=== PATIENT | female | born 1955 | race Caucasian/White ===

== ENCOUNTER 2021-10-20 14:29 | Observation (INO) | payer MEDICARE, OTHER, SELFPAY ==
[2021-10-20] VITALS (10 sets, daily range): BP systolic 122–143; BP diastolic 59–91; PULSE 65–89; RESP 17–25; TEMP 36.4–37.1; O2SAT 93–98; BMI 32.5; BMI 36.8
--- NOTE | 2021-10-20 14:47 | CT_ITS ---
STUDY: CT HEAD STROKE PROTOCOL W/O CONTRAST INJECTION REASON FOR EXAM: Female, 65 years old. Neuro deficit, acute, stroke suspected RADIATION DOSAGE (If Supplied By Facility): CTDIvol = ( 44.99 ) mGy, DLP = ( 779.24 ) mGycm TECHNIQUE: Transaxial CT imaging of the brain was performed without administration of intravenous contrast material. Individualized dose optimization techniques were used for this CT. COMPARISON: No relevant priors. FINDINGS: Normal soft tissue structures. There is hyperostosis frontalis internus. There is mild cerebral atrophy with widening of the extra-axial spaces and ventricular dilatation. Normal white matter tracts of the cerebral hemispheres. Normal basal ganglia and thalami. Normal brainstem. There is mild cerebellar atrophy. There is no intracranial hemorrhage. There are no findings of an acute ischemic infarction. Atherosclerotic plaque calcification of the cavernous portions of the internal carotid arteries bilaterally. Normal visualized paranasal sinuses. ASPECT score: 10 CT/STROKE Brain/Head without Cont IMPRESSION: Chronic involutional changes of the brain. N.B. : The above Results were Read Back by Adriel Clemons MD to Dilip Maravilla and understanding confirmed on 10/20/2021 15:00:39 (ET). Electronically Signed: Adriel Clemons MD at 15:01 EDT ,
--- NOTE | 2021-10-20 14:47 | EKG12_ITS ---
Test Reason : stroke Blood Pressure : / mmHG Vent. Rate : 065 BPM Atrial Rate : 065 BPM P-R Int : 152 ms QRS Dur : 086 ms QT Int : 410 ms P-R-T Axes : 049 -08 032 degrees QTc Int : 426 ms Normal sinus rhythm Normal ECG Confirmed by CORETTA POWELL, DANISH ([id number]), proposal editor JAVIER FELICIANO ([id number]) on 10/21/2021 2:12:39 PM Referred By: Renita Confirmed By:ALEXY HITCHCOCK MD
--- NOTE | 2021-10-20 14:48 | ED.VIS.STROK ---
HPI History of Present Illness Chief Complaint: Neuro S/Sx Informant: patient and EMS Onset/Context/Timing Onset: Today Narrative Narrative: Patient brought in by EMS for potential stroke symptoms. currently not present. Patient reports left driving following her and RV at 1230. pulled her over states she was not acting right. EMS was contacted. Reported garbled speech and weakness. History of multiple TIAs in the past she says a total of 3 first in 2015 had 2 in 2019. Chronic mild left droop and had dysarthria at that time and went through speech therapy. She does report noting more speech changes. She states was put on aspirin and Plavix after her TIA in 2019 however developed a GI bleed. Continued on Plavix. In January 2021 had a traumatic subdural hematoma transferred down to [facility] with no surgical intervention. Denies headache. History of prediabetes. History of CKD stage III with baseline GFR 40 per patient. She does not take any anticoagulants. She is a retired respiratory therapist. Prior similar symptoms: Yes PFSH PFS Medical History (Updated 10/20/21 @ 19:16 by Shana Cobos) Asthma Coronary artery disease Fibromyalgia GI bleed Hernia Irregular heart beat Kidney disease Kidney stones Sleep apnea TIA (transient ischemic attack) Home Medications amitriptyline 10 mg tablet 20 mg PO QHS neck 10/20/21 [History Last Taken 10/19/21] carvedilol 12.5 mg tablet 12.5 mg PO BID heart bp 10/20/21 [History Last Taken 10/20/21] clopidogrel 75 mg tablet 75 mg PO QHS blood thinner 10/20/21 [History Last Taken 10/19/21] fluticasone fur. 200 mcg-umeclid 62.5 mcg-vilant 25 mcg inhalat.powder (Trelegy Ellipta) inh inhalation BID sob 10/20/21 [History Last Taken 10/20/21] gabapentin 300 mg capsule 300 mg PO BID pain 10/20/21 [History Last Taken 10/20/21] losartan 50 mg tablet 50 mg PO DAILY bp 10/20/21 [History Last Taken 10/20/21] omeprazole 40 mg capsule,delayed release 40 mg PO BID stomach 10/20/21 [History Last Taken 10/20/21] Allergy/AdvReac Type Severity Reaction Status Date / Time No Known Allergies Allergy Verified 10/20/21 14:54 Family History Mother CAD (coronary artery disease) Father CAD (coronary artery disease) Surgical History (Updated 10/20/21 @ 19:16 by Shana Cobos) H/O: hysterectomy History of ankle surgery History of section Status post ORIF of fracture of ankle Social History (Updated 10/20/21 @ 17:[address] Karen Yusuf MD) household members: spouse Smoking Status: Never smoker substance use type: does not use ROS ROS ED Constitutional Constitutional ED: Denies chills, fever(s) or sweats Eyes Eyes: Denies change in vision ENT ENT ED: Denies dysphagia or sore throat Cardiovascular Cardiovascular: Denies chest pain, leg edema, palpitations or racing heartbeat Respiratory/Chest Respiratory/Chest: Denies cough, dyspnea or dyspnea on exertion Gastrointestinal Gastrointestinal: Denies abdominal pain, diarrhea, nausea or vomiting Genitourinary Genitourinary ED: Denies dysuria, hematuria or urinary frequency Musculoskeletal Musculoskeletal: Denies back pain, extremity pain or neck pain Integumentary Denies rash or wounds Neurologic Neurologic: Reports other Details: Dysarthria ; Denies headache(s), paresthesias or weakness EXAM Physical Exam Const Vital Signs: 10/20/21 14:32 10/20/21 14:50 10/20/21 14:50 Temperature 97.9 F Temperature Source Oral Pulse Rate 73 70 Respiratory Rate 25 H 19 H Blood Pressure 143/74 H 143/74 H Blood Pressure Mean 97 97 Pulse Ox 94 98 Oxygen Delivery Method Room Air Room Air Room Air 10/20/21 14:58 10/20/21 15:17 10/20/21 15:30 Temperature 97.9 F 98.7 F Temperature Source Oral Temporal Pulse Rate 70 65 68 Respiratory Rate 19 H 21 H 22 H Blood Pressure 143/74 H 132/59 H 139/82 H Blood Pressure Mean 97 83 101 Pulse Ox 98 98 93 Oxygen Delivery Method Room Air Room Air Room Air 10/20/21 15:30 Temperature Temperature Source Pulse Rate 68 Respiratory Rate 22 H Blood Pressure 139/82 H Blood Pressure Mean 101 Pulse Ox 93 Oxygen Delivery Method Room Air Positive well nourished and well developed General Appearance ED: well developed and NAD HEENT Reports moist mucous membranes normocephalic and atraumatic Eyes PERRL, EOMs intact bilaterally and conjunctivae normal General Eye ED: Yes normal appearance of both eyes Neck no lymphadenopathy and supple General: Negative for tenderness Chest Wall Chest: Negative for tenderness Resp normal respiratory effort and normal air movement Effort and Inspection: symmetric chest movement; Negative for respiratory distress Cardio regular rate, regular rhythm and no murmurs Peripheral Pulses: pulses 2+ throughout GI normal to inspection, nondistended, normoactive bowel sounds and non-tender Palpation: Negative for guarding or rebound tenderness present Back/Spine no CVA tenderness and no thoracic nor lumbar tenderness Extremity normal to inspection General Extremety ED: Negative for edema or tenderness General Extremity: Negative for edema Neuro oriented x3 and no sensory deficits noted Neuro Narrative: Slight left lip droop chronic per patient, dysarthria new. Sensorium / Orientation: awake and alert Skin no rashes or lesions noted and no wounds NIHSS NIHSS Initial: 1a Level of Consciousness: 0 1b LOC Questions (Score 2 if aphasic/stupor): 0 1c LOC Commands (Only score 1st attempt): 0 2 Best Gaze (If aphasic, use reflexive mvmts.): 0 3 Visual: 0 4 Facial Palsy: 1 5 Motor Arm Right (UN = amputation/fusion): 0 5 Motor Arm Left: 0 6 Motor Leg Right: 0 6 Motor Leg Left: 0 7 Limb ataxia (Only + if out of proportion): 0 8 Sensory (Aphasia/stupor=0 or 1, coma=2): 0 9 Best Language: 0 10 Dysarthria (mute, coma=2, intubated=UN): 1 11 Extinction and Inattention (only scored if +): 0 Total Score: 2 MDM MDM MDM Narrative Medical decision making narrative: Patient NIH of 2, however left lip droop is chronic. Dysarthria is new. Last clearly known time was 1230 when she left driving. Spouse is not currently present. Onset within 4 and half hours. Reported CKD stage III with GFR 40, there is no labs in the system. We will hold off on CTA at this time pending labs and discussion with neurology. 1508: Tele Neurology evaluated. NIH too low for tPA. Discussed her chronic kidney disease, discussed okay to wait for MRI/MRA studies. No CTA. Plan admission for work-up. She will make recommendations for anticoagulations with her known bleeding issues on dual antiplatelet therapy. I spoke with hospitalist Dr. Yusuf for admission to PCU. Lab Data Attestation: I reviewed the patient's lab results. Labs: Laboratory Results - last 24 hr 10/20/21 10/20/21 10/20/21 14:48 15:00 15:00 WBC 4.9 RBC 3.41 L Hgb 11.8 L Hct 35.1 L MCV 102.9 H MCH 34.6 H MCHC 33.6 RDW Std Deviation 49.2 H RDW Coeff of Rubén 13.2 Plt Count 295 MPV 9.2 Immature Gran % (Auto) 0.600 Neut % (Auto) 60.6 Lymph % (Auto) 26.1 Collingsworth % (Auto) 10.3 H Eos % (Auto) 1.6 Baso % (Auto) 0.8 Absolute Neuts (auto) 3.0 Absolute Lymphs (auto) 1.29 Nucleated RBC % 0 PT 12.9 INR 1.0 APTT 26.9 Sodium Potassium Chloride Carbon Dioxide Anion Gap BUN Creatinine Estim Creat Clear Calc Est GFR (MDRD) Af Amer Est GFR (MDRD) Non-Af BUN/Creatinine Ratio Glucose Hemoglobin A1c Calcium Troponin I High Sens TSH POC Glucose 92 10/20/21 10/20/21 10/20/21 15:00 15:00 15:00 WBC RBC Hgb Hct MCV MCH MCHC RDW Std Deviation RDW Coeff of Rubén Plt Count MPV Immature Gran % (Auto) Neut % (Auto) Lymph % (Auto) Collingsworth % (Auto) Eos % (Auto) Baso % (Auto) Absolute Neuts (auto) Absolute Lymphs (auto) Nucleated RBC % PT INR APTT Sodium 139 Potassium 3.8 Chloride 105 Carbon Dioxide 25.0 Anion Gap 9 BUN 10 Creatinine 1.13 H Estim Creat Clear Calc 45.23 Est GFR (MDRD) Af Amer 62 Est GFR (MDRD) Non-Af 51 L BUN/Creatinine Ratio 8.8 L Glucose 99 Hemoglobin A1c 6.1 H Calcium 8.7 Troponin I High Sens 5 TSH 2.76 POC Glucose Radiography Diagnostic Testing: Clinical Impression(s) from Imaging Studies Brain CT 10/20/21 14:47 IMPRESSION: Chronic involutional changes of the brain. N.B. : The above Results were Read Back by Adriel Clemons MD to Dilip Maravilla and understanding confirmed on 10/20/2021 15:00:39 (ET). Electronically Signed: Adriel Clemons MD at 15:01 EDT , ADDENDUM: 10/20/21 1508 IMPRESSION: Chronic involutional changes of the brain. N.B. : The above Results were Read Back by Adriel Clemons MD to Dilip Maravilla and understanding confirmed on 10/20/2021 15:00:39 (ET). Electronically Signed: Adriel Clemons MD at 15:01 EDT , Chest X-Ray 10/20/21 15:20 IMPRESSION: Mild cardiomegaly. The lungs are clear. Electronically Signed: Adriel Clemons MD at 15:34 EDT , EKG Initial EKG: Attestation: I personally reviewed and interpreted this EKG as follows: Comments: Sinus rate of 65, no ST changes T wave inversions anterior leads. Discharge Plan Disposition Disposition: Acute Care Hospital [facility] Discharge Date/Time: 10/20/21 16:01
--- NOTE | 2021-10-20 14:56 | CM.ED ---
SW Note SW responded to stroke alert with media supervisor. No family was present. SW remains available if needs arise. Michaela PANDA
[2021-10-20 15:06] LABS: Bedside Glucose 92 mg/dL (74-106)
[2021-10-20 15:12] LABS: Absolute Lymphocyte Count 1.29 X10^3/uL (0.83-4.51); Basophil# 0.04 X10^3/uL; Basophil% 0.8 % (0-1); Eosinophil# 0.08 X10^3/uL; Eosinophils% 1.6 % (0-5); Hematocrit 35.1 % (37-47); Hemoglobin 11.8 g/dL (12.0-15.0); Lymphocyte # 1.29 X10^3/ul (0.83-4.51); Lymphocyte % 26.1 % (19-41); Mean Corp Hgb Conc 33.6 g/dL (32-36); Mean Corpuscular Hgb 34.6 pg (27.0-32.0); Mean Corpuscular Volume 102.9 fL (81-99); Mean Platelet Vol. 9.2 fl (6.2-12.0); Monocyte# 0.51 X10^3/uL; Monocyte% 10.3 % (0-10); NRBC Flagged by Analyzer 0 % (0-5); Neutrophil # 2.99 X10^3/uL (2.7-7.7); Neutrophil % 60.6 % (47-70); Platelet Count 295 K/mm3 (150-450); RBC Distribution Width CV 13.2 % (11.6-14.6); RBC Distribution Width SD 49.2 fl (35.1-43.9); Red Blood Count 3.41 M/mm3 (4.2-5.4); White Blood Count 4.9 K/mm3 (4.4-11.0)
--- NOTE | 2021-10-20 15:20 | RAD_ITS ---
STUDY: X-RAY CHEST REASON FOR EXAM: Female, 65 years old. Neuro deficit, acute, stroke suspected TECHNIQUE: Single AP portable view of the chest. COMPARISON: None. FINDINGS: EKG electrodes are seen. Mild elevation of the right hemidiaphragm. There is no demonstrated pleural abnormality. There is mild cardiac enlargement. Normal mediastinum and nikolai. Normal visualized pulmonary arteries. There is atherosclerotic tortuosity of the aortic arch and descending thoracic aorta. Normal visualized thoracic spine. Normal visualized ribs, clavicles, and shoulders. There is no demonstrated abnormality of the visualized soft tissue structures of the upper abdomen. RAD/Chest 1 View IMPRESSION: Mild cardiomegaly. The lungs are clear. Electronically Signed: Adriel Clemons MD at 15:34 EDT ,
[2021-10-20 15:23] LABS: Partial Thromboplast Time 26.9 Seconds (24.1-36.2); Prothrombin Time (Protime)PT. 12.9 SECONDS (11.7-14.9)
[2021-10-20 15:28] LABS: Anion Gap 9 (5-15); BUN 10 mg/dL (7-18); BUN/Creat Ratio 8.8 RATIO (10-20); Calcium,Total 8.7 mg/dL (8.5-10.1); Chloride 105 mmol/L (98-107); Creatinine, Serum 1.13 mg/dL (0.55-1.02); EST Glomerular Filtration Rate 51 mL/min (>60); Est Glom Filt Rate - Afr Amer 62 mL/min (>60); Estimated Creatinine Clearance 45.23 ml/min; Glucose 99 mg/dL (74-106); Potassium 3.8 mmol/L (3.5-5.1); Sodium Level 139 mmol/L (136-145); Troponin-I HS 5 pg/mL (3.0-54.0)
--- NOTE | 2021-10-20 15:35 | CHAPLAIN ---
Type of Pastoral Visit ___ Initial Visit ___ Follow-up Visit ___ On-call Visit ___ General Patient Visit ___ Spiritual Assessment ___ Family Conference ___ Bereavement _x__ Rapid Response ___ Code Blue ___ Other (describe below) Pastoral Care Referral From ___ Patient ___ Family ___ Nurse ___ Physician ___ Arts Administrator Or Manager ___ Concrete Laborer _x__ Other (describe below) Sacrament/Intervention ___ Active listening ___ Anointing ___ Orthodoxy ___ Bereavement ___ Communion ___ Era exploration ___ ___ Life review ___ Prayer ___ Reconciliation ___ Sacrament of Sick _x__ Supportive presence ___ Wedding ___ Other (describe below) Pastoral Comments came to stroke alert in ED; pt was taken in CT for scan; was supposed to be coming in and therefore waited for him; however, after some time it was learned from a phone call that spouse had driven on to their camping destination and would need to back track to hospital later today; offer of support and presence to the patient; stroke alert was then rescinded but pt will be admitted
--- NOTE | 2021-10-20 16:10 | ECHOD_ITS ---
Reason For Study: TIA/CVA Procedure This was a 2D Doppler, Color Flow transthoracic echocardiogram. Technically difficult apical images. Breathing techniques were used. Exam performed portable in patient room. Left Ventricle Normal LV size. The estimated ejection fraction is 70 %. No evidence for diastolic dysfunction. No regional wall motion abnormalities noted. Right Ventricle Normal RV size. Normal systolic function. Atria Normal left atrium. Normal right atrium. No doppler evidence for ASD. Bubble contrast study negative for right to left interatrial shunt. Mitral Valve There is no mitral valve stenosis. Trivial mitral valve insufficiency. Tricuspid Valve There is no tricuspid stenosis. Unable to estimate RV systolic pressure due to inadequate jet, pulmonary artery pressure probably normal. Aortic Valve Trisinus/trileaflet aortic valve. There is no aortic stenosis. No aortic valve insufficiency. Pulmonic Valve There is no pulmonic valvular stenosis. No pulmonic valve insufficiency. Great Vessels Normal aortic root. Pericardium/Pleural No pericardial effusion. Medication Performed a rapid injection of agitated mix of 9 cc saline and 1cc air to assess for atrial septal defect. MMode/2D Measurements & Calculations LVIDd: 4.7 cm IVSd: 0.84 cm Ao root diam: 3.0 cm LVIDs: 2.9 cm LVPWd: 0.90 cm LA dimension: 3.2 cm FS: 38.3 % LAV(MOD-bp): 24.4 ml LA A4 area: 11.4 cm2 LAV(MOD-bp) Indexed: 13.1 ml/m2 LAV(MOD-sp2): 25.3 ml LAV(MOD-sp4): 23.7 ml Time Measurements MV dec time: 0.27 sec Doppler Measurements & Calculations MV E max arun: 50.3 cm/sec Lat Peak E' Arun: 9.2 cm/sec Med Peak E' Arun: 8.2 cm/sec MV A max arun: 87.5 cm/sec E/E' lat: 5.5 E/E' med: 6.1 MV E/A: 0.57 MV V2 max: 87.0 cm/sec MV P1/2t max arun: 55.3 cm/sec Ao V2 max: 100.0 cm/sec MV max P.0 mmHg MV P1/2t: 67.2 msec Ao max P.0 mmHg MV V2 mean: 43.9 cm/sec MV dec slope: 241.3 cm/sec2 MV mean P.95 mmHg MV V2 VTI: 14.6 cm MVA(P1/2t): 3.3 cm2 LV V1 max: 75.0 cm/sec PA V2 max: 110.5 cm/sec LV V1 max P.2 mmHg ECHO/Echo Complete Interpretation Summary The estimated ejection fraction is 70 %. No evidence for diastolic dysfunction. Trivial mitral valve insufficiency. Ordering Physician: Karen Yusuf Performed By: Gabo Doyle RCS
--- NOTE | 2021-10-20 16:10 | MRI_ITS ---
EXAM: MR HEAD WITHOUT INTRAVENOUS CONTRAST CLINICAL INDICATION: Neuro deficits, EPISODE OF AMNESIA TECHNIQUE: Multiplanar and multisequence MR images of the brain were obtained without intravenous contrast. Magnetic field strength 1.5 T. This report was created using [employer] report generation technology. COMPARISON: CT brain 10/20/2021. FINDINGS: BRAIN AND EXTRA-AXIAL SPACES: Unremarkable. No intra- or extra-axial hemorrhage. No evidence of acute infarct. No intracranial mass or mass effect. There is preservation of the stallworth/white matter interface. Posterior fossa structures are unremarkable. Ventricles are appropriate for age. No hydrocephalus. Basal cisterns are patent. SELLA: Incidental empty sella. AUDITORY SYSTEM: Unremarkable. The internal auditory canals are patent. BONES/JOINTS: Unremarkable. No discrete lytic or blastic abnormalities. SINUSES: Unremarkable as visualized. Clear. MASTOID AIR CELLS: Unremarkable as visualized. Clear. ORBITS: Unremarkable as visualized. Both globes, extraocular muscles, optic nerves and retrobulbar fat appear unremarkable. VASCULATURE: Unremarkable as visualized. Normal flow voids in the major intracranial circulation. MRI/Brain without Contrast IMPRESSION: No acute findings in the head/brain. Electronically Signed: Jonathan Goncalves MD at 4:55 EDT ,
--- NOTE | 2021-10-20 16:10 | MRI_ITS ---
EXAM: MR ANGIOGRAPHY HEAD WITHOUT INTRAVENOUS CONTRAST CLINICAL INDICATION: Neuro deficits, EPISODE OF AMNESIA TECHNIQUE: Routine three affiliated of Luciano/brain 3D time of flight MR angiogram protocol was performed without intravenous contrast. Magnetic field strength 1.5 T. This report was created using [employer] report [employer] technology. COMPARISON: None. FINDINGS: RIGHT INTERNAL CAROTID ARTERY: No acute findings. No significant stenosis at the intracranial/visualized segments. No aneurysm. RIGHT ANTERIOR CEREBRAL ARTERY: Absent A1 segment of the right anterior cerebral artery. No significant stenosis at the visualized segments. Anterior communicating artery is present. No aneurysm. RIGHT MIDDLE CEREBRAL ARTERY: Unremarkable. No significant stenosis at the visualized segments. No aneurysm. RIGHT POSTERIOR CEREBRAL ARTERY: Unremarkable. No significant stenosis at the visualized segments. No aneurysm. RIGHT VERTEBRAL ARTERY: Unremarkable as visualized. No significant stenosis at the intradural/visualized segments. No aneurysm. LEFT INTERNAL CAROTID ARTERY: No acute findings. No significant stenosis at the intracranial/visualized segments. No aneurysm. LEFT ANTERIOR CEREBRAL ARTERY: Unremarkable. No significant stenosis at the visualized segments. Anterior communicating artery is present. No aneurysm. LEFT MIDDLE CEREBRAL ARTERY: Unremarkable. No significant stenosis at the visualized segments. No aneurysm. LEFT POSTERIOR CEREBRAL ARTERY: Unremarkable. No significant stenosis at the visualized segments. No aneurysm. LEFT VERTEBRAL ARTERY: Unremarkable as visualized. No significant stenosis at the intradural/visualized segments. No aneurysm. BASILAR ARTERY: Unremarkable. No significant stenosis. No aneurysm. OTHER VASCULATURE: No vascular malformation. MRI/MRA Head ONLY without Contrast IMPRESSION: No acute findings in the arteries of the head/brain. 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 Electronically Signed: Jonathan Goncalves MD at 4:56 EDT ,
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
[2021-10-20 17:16] LABS: Thyroid Stim Hormone (TSH) 2.76 uIU/mL (0.358-3.74)
[2021-10-20 18:15] LABS: Hemoglobin A1c 6.1 % (3.8-5.6)
--- NOTE | 2021-10-20 18:52 | NURSING ---
off floor to mri
[2021-10-20] MEDS: Heparin Injection (Vial) 5,000 UNIT/ML VIAL 5000 UNIT SC (21:03)
[2021-10-20] MEDS: Amitriptyline 10 MG Tablet 20 MG PO (21:03)
[2021-10-20] MEDS: Clopidogrel Bisulfate 75 MG Tablet PO (21:04)
[2021-10-20] MEDS: Atorvastatin Calcium 80 MG Tablet PO (21:04)
[2021-10-20] MEDS: Pantoprazole Sodium 40 MG Tablet PO (21:04)
[2021-10-20] MEDS: Gabapentin 300 MG Capsule PO (21:09)
[2021-10-20] MEDS: 0.9% Saline Lock 10 ML Syringe IV (21:09)
[2021-10-21] VITALS (7 sets, daily range): BP systolic 98–151; BP diastolic 68–77; PULSE 65–86; RESP 16–18; TEMP 36.3–36.9; O2SAT 94–97; BMI 36.8
--- NOTE | 2021-10-21 05:55 | CDU_ITS ---
Reason For Study: CVA Rt. Velocities/BP Lt. Velocities/BP Prox CCA 76.0/14.7 cm/sec. Prox CCA 53.7/11.0 cm/sec. Mid CCA 53.9/16.0 cm/sec. Mid CCA 56.4/17.1 cm/sec. Dist CCA 46.0/12.1 cm/sec. Dist CCA 44.1/11.9 cm/sec. Prox ICA 49.4/20.6 cm/sec. Prox ICA 40.6/12.7 cm/sec. Mid ICA 72.1/18.0 cm/sec. Mid ICA 48.5/15.4 cm/sec. Dist ICA 60.2/20.8 cm/sec. Dist ICA 57.3/20.1 cm/sec. Rt. ICA/CCA = 0.9. Lt. ICA/CCA = 1.3. Prox ECA 50.3/9.9 cm/sec. Prox ECA 50.2/11.0 cm/sec. Rt. Vert. 38.9/14.5 cm/sec. Lt. Vert. 38.9/8.3 cm/sec. Right Extracranial There is intimal thickening but no significant atherosclerotic plaque noted in the right common carotid artery. There is intimal thickening but no significant atherosclerotic plaque noted in the right internal carotid artery. There is intimal thickening but no significant atherosclerotic plaque noted in the right external carotid artery. Antegrade flow is noted in the right vertebral artery. Left Extracranial There is intimal thickening but no significant atherosclerotic plaque noted in the left common carotid artery. There is intimal thickening but no significant atherosclerotic plaque noted in the left internal carotid artery. There is intimal thickening but no significant atherosclerotic plaque noted in the left external carotid artery. Antegrade flow is noted in the left vertebral artery. Procedure Carotid Duplex 87514. This is a Carotid Duplex examination using B-mode, color flow and specral Doppler. The exam was diagnostic. Exam performed portable in patient room. VL/Carotid Duplex Ultrasound Interpretation Summary Intimal thickening of bilateral extracranial internal carotid artery stenosis l ess than 50% stenosis Less than 50% stenosis bilateral external carotid arteries Patent and antegrade vertebral arteries bilaterally Ordering Physician: Karen Yusuf Performed By: Jonathan Wells
[2021-10-21] MEDS: Heparin Injection (Vial) 5,000 UNIT/ML VIAL 5000 UNIT SC (06:14)
[2021-10-21 06:40] LABS: Cholesterol 99 mg/dL (200); High Density Lipoprotein 48 mg/dL; Triglycerides 120 mg/dL; Very Low Density Lipoprotein 24 mg/dL (5-40)
--- NOTE | 2021-10-21 07:08 | DCINST_ITS ---
Discharge Instructions Diet Discharge Diet: Low fat / Low cholesterol and 2000 mg Sodium Diet Activity Discharge Activity: Return to Normal Activity Weight Bearing Status: Weight bearing as tolerated Follow Up Care Test Results: Test results from this visit will be discussed in further detail at your follow- up appointment, if applicable. Discharge Plan Admission Admit Date/Time: 10/20/21 15:33 Primary Reason for Your Visit: TIA Attending Provider: Karen Yusuf Primary Care Provider: Lloyd Clinton Instructions Additional Instructions / Restrictions: Continue to take all your medications as prescribed Follow-up with your primary care doctor within 1 week. Discharge Orders/Prescriptions Prescriptions: Continued losartan 50 mg tablet 50 mg PO DAILY Label Comments: TAKE 1 TABLET BY MOUTH DAILY carvedilol 12.5 mg tablet 12.5 mg PO BID Label Comments: TAKE 1 TABLET BY MOUTH TWICE DAILY WITH MEALS clopidogrel 75 mg tablet 75 mg PO QHS Label Comments: TAKE 1 TABLET BY MOUTH DAILY omeprazole 40 mg capsule,delayed release(DR/EC) 40 mg PO BID Label Comments: TAKE 1 CAPSULE BY MOUTH TWICE DAILY amitriptyline 10 mg tablet 20 mg PO QHS Label Comments: TAKE 2 TABLETS BY MOUTH AT BEDTIME gabapentin 300 mg capsule 300 mg PO BID Label Comments: TAKE 1 CAPSULE BY MOUTH TWICE DAILY Trelegy Ellipta 200-62.5-25 mcg blister with device INHALATION BID Label Comments: USE 1 INHALATION BY MOUTH ONCE DAILY Referrals / Follow Up: Lloyd Clinton [Other] - In 1 Week NOT,DEFINED [Non-Staff] - Disposition Disposition (needs filled in before D/C Order can be placed): Home, Self Care
[2021-10-21] MEDS: Famotidine 20 MG Tablet PO (08:17)
[2021-10-21] MEDS: Pantoprazole Sodium 40 MG Tablet PO (08:18)
[2021-10-21] MEDS: Carvedilol 12.5 MG Tablet PO (09:52)
[2021-10-21] MEDS: Losartan Potassium 50 MG Tablet PO (09:52)
[2021-10-21] MEDS: Gabapentin 300 MG Capsule PO (09:52)
--- NOTE | 2021-10-21 10:09 | CASEMGMT ---
Addendum entered by Aparna Kenny 10/21/21 10:21: Pt states hx of multiple TIA's in past. Pt states has a cane and shower chair at home. Dandy WHALEY CM Original Note: This RN CM to room to discuss d/c plan and pt states no concerns with going home at time of discharge. Pt feels she is back to her normal and declines need for any further OP or HHC therapy at discharge. Pt voices no further questions/concerns/needs. Dandy WHALEY CM
--- NOTE | 2021-10-21 10:54 | CASEMGMT ---
SW completed a PHQ9 with patient as she had a TIA. Patient scored a 1 which indicates minimal depression. Patient denied any resources for counseling or the [facility] Stroke support group. No VALIENTE
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
--- NOTE | 2021-10-21 11:23 | PHA.DC.MR ---
Pharmacy Service has performed discharge medication reconciliation for this patient. No new medications at time of discharge review. Medications reviewed are from previously reported home medications. Home Medications amitriptyline 10 mg tablet 20 mg PO QHS sleep 10/20/21 carvedilol 12.5 mg tablet 12.5 mg PO BID blood pressure 10/20/21 clopidogrel 75 mg tablet 75 mg PO QHS anti platelet 10/20/21 fluticasone fur. 200 mcg-umeclid 62.5 mcg-vilant 25 mcg inhalat.powder (Trelegy Ellipta) inh inhalation BID sob 10/20/21 gabapentin 300 mg capsule 300 mg PO BID pain 10/20/21 losartan 50 mg tablet 50 mg PO DAILY bp 10/20/21 omeprazole 40 mg capsule,delayed release 40 mg PO BID stomach 10/20/21 The patient's discharge medication list was reviewed for discrepancies and discrepancies were resolved.
== END 2021-10-21 07:08 | disposition home or self-care (01) ==
LOC: ED 15:35 → PCU 15:56
PROVIDERS: Admitting Provider Internal Medicine; Emergency Provider Emergency Medicine; Visit Provider Internal Medicine
DX: G45.9 Transient cerebral ischemic attack, unspecified (principal); N18.30 Chronic kidney disease, stage 3 unspecified; R47.89 Other speech disturbances; I69.322 Dysarthria following cerebral infarction; R29.702 NIHSS score 2; I25.10 Atherosclerotic heart disease of native coronary artery without angina pectoris; I12.9 Hypertensive chronic kidney disease with stage 1 through stage 4 chronic kidney disease, or unspecified chronic kidney disease; M79.7 Fibromyalgia; Z79.02 Long term (current) use of antithrombotics/antiplatelets; Z79.899 Other long term (current) drug therapy; Z79.51 Long term (current) use of inhaled steroids; R53.1 Weakness; I69.392 Facial weakness following cerebral infarction; J45.909 Unspecified asthma, uncomplicated; G47.30 Sleep apnea, unspecified
CPT/HCPCS: 36415; 70450; 70544; 70551; 71045; 80048; 80061; 82962; 83036; 84443; 84484; 85025; 85610; 85730; 93005; 93306; 93880; 94762; 96372; 99218; 99285; A4216; G0378